=== PATIENT | female | born 1990 | race Caucasian/White ===

== ENCOUNTER → 2017-02-05 | Outpatient (CLI) | payer MEDICAID ==
[~2017-02-05] MED LIST: AMOXICILLIN/CLA1 TA1 PO; AMOXIL500 MG PO; CLARITIN 10MG T10 MG PO; CLARITIN10 MG PO; FAMOTIDINE 20MG20 MG PO; FERROUS SULFAT325 M1 PO; IBUPROFEN400 MG PO; LEVOTHYROXIN0.025 M1 PO; LORTAB 5/500 501 TAB PO; MOTRIN 400MG.400 MG PO; MUCINEX600 M1 PO; NAUSEA MED; NOMEDS *; PERCOCET 5/3251 EACH PO; PERCOCET1 TA1 PO; PRENATAL PLUS1 TA1 PO; SYNTHROID0.025 MG PO
== END ==
LOC: SL 12:59
DX: R06.81 Apnea, not elsewhere classified (principal); R06.83 Snoring; R51 Headache; G47.10 Hypersomnia, unspecified